=== PATIENT | male | born 1960 | race African-American/Black ===

== ENCOUNTER 2017-12-28 15:00 | Inpatient (IN) | payer OTHER ==
[2017-12-28 16:43] VITALS: BMI 29.9
--- NOTE | 2017-12-28 17:27 | HP ---
CIWA Score - CIWA Score Nausea/Vomitin-Mild Nausea/No Vomiting Muscle Tremors: 1-None Visible, but Romance Anxiety: 3 Agitation: 3 Paroxysmal Sweats: 1-Minimal Palms Moist Orientation: 0-Oriented Tacttile Disturbances: 0-None Auditory Disturbances: 3-Moderate Harsh/Frighten Visual Disturbances: 0-None Headache: 0-None Present CIWA-Ar Total Score: 12 Admission ROS BHS - HPI Chief Complaint: ETOH WITHDRAWAL SYMPTOMS AND MARIJUANA DEPENDENCE Allergies/Adverse Reactions: Allergies Allergy/AdvReac Type Severity Reaction Status Date / Time No Known Allergies Allergy Verified 12/28/17 17:06 History of Present Illness: PATIENT PRESENTS WITH ETOH WITHDRAWAL SYMPTOMS. PATIENT STARTED DRINKING AT AGE 14 AND DRINKS 120 OUNCES OF BEER DAILY. LAST DRINK WAS LAST NIGHT. PATIENT ALSO SMOKES MARIJUANA SINCE AGE 13 AND SMOKES UP TO ONE JOINT DAILY. LAST TIME HE SMOKED WAS 3 WEEKS AGO. PMH INCLUDES SCHIZOPHRENIA AND HTN. DENIES SI/HI AND SUICIDE ATTEMPTS. DENIES HX OF SEIZURES WELL. Exam Limitations: No Limitations - Ebola screening Have you traveled outside of the country in the last 21 days: No (N) Have you had contact with anyone from an Ebola affected area: No Have you been sick,other than usual withdrawal symptoms: No Do you have a fever: No - Review of Systems Constitutional: Night Sweats, Changes in sleep EENT: reports: No Symptoms Reported Respiratory: reports: No Symptoms reported Cardiac: reports: No Symptoms Reported GI: reports: Nausea, Poor Fluid Intake, Abdominal cramping : reports: No Symptoms Reported Musculoskeletal: reports: No Symptoms Reported Integumentary: reports: Sweating Neuro: reports: Headache, Tremors Endocrine: reports: No Symptoms Reported Hematology: reports: No Symptoms Reported Psychiatric: reports: Orientated x3, Anxious, Depressed Patient History - Patient Medical History Hx Anemia: No Hx Asthma: No Hx Chronic Obstructive Pulmonary Disease (COPD): No Hx Cancer: No Hx Cardiac Disorders: No Hx Congestive Heart Failure: No Hx Hypertension: Yes Hx Hypercholesterolemia: No Hx Pacemaker: No HX Cerebrovascular Accident: No Hx Seizures: No Hx Dementia: No Hx Diabetes: No Hx Gastrointestinal Disorders: No Hx Liver Disease: No Hx Genitourinary Disorders: No Hx Sexually Transmitted Disorders: No Hx Renal Disease (ESRD): No Hx Thyroid Disease: No Hx Human Immunodeficiency Virus (HIV): No Hx Hepatitis C: No Hx Depression: No Hx Suicide Attempt: No Hx Bipolar Disorder: No Hx Schizophrenia: Yes - Patient Surgical History Past Surgical History: No - PPD History Previous Implant?: No PPD to be Administered?: Yes - Smoking Cessation Smoking history: Former smoker Have you smoked in the past 12 months: No Initiated information on smoking cessation: No - Substance & Tx. History Hx Alcohol Use: Yes Hx Substance Use: Yes Substance Use Type: Alcohol, Marijuana Hx Substance Use Treatment: No - Substances Abused Alcohol Route: Oral Frequency: Daily Amount used: 2-3 40OZ Age of first use: 13 Date of Last Use: 12/28/17 Marijuana/Hashish Route: Smoking Frequency: 1-3 times last 30 days Amount used: 1 JOINT Age of first use: 13 Date of Last Use: 12/07/17 Family Disease History - Family Disease History Family Disease History: Heart Disease: Father, Mother Admission Physical Exam [facility] - Vital Signs Vital Signs: Vital Signs - 24 hr 12/28/17 16:42 Temperature 98.9 F Pulse Rate 80 Respiratory 18 Rate Blood Pressure 158/86 - Physical General Appearance: Yes: Disheveled, Tremorous, Sweating, Anxious HEENTM: Yes: EOMI, Hearing grossly Normal, Normocephalic, Normal Voice, DYLAN, Pharynx Normal Respiratory: Yes: Chest Non-Tender, Lungs Clear, Normal Breath Sounds, No Respiratory Distress, No Accessory Muscle Use Neck: Yes: No masses,lesions,Nodules, Supple Breast: Yes: Breast Exam Deferred Cardiology: Yes: Regular Rhythm, Regular Rate, S1, S2 Abdominal: Yes: Normal Bowel Sounds, Non Tender, Soft Genitourinary: Yes: Within Normal Limits Back: Yes: Normal Inspection Musculoskeletal: Yes: full range of Motion, Gait Steady Extremities: Yes: Normal Inspection, Normal Range of Motion, Non-Tender, Tremors Neurological: Yes: tester semiconductor packages II-XII NML intact, Fully Oriented, Alert, Motor Strength 5/5, Normal Response, Depressed Affect Integumentary: Yes: Normal Color, Warm, Moist Lymphatic: Yes: Within Normal Limits Cleared for Admission [facility] - Detox or Rehab [facility] Level of Care: Medically Managed Detox Regimen/Protocol: Librium [facility] Breath Alcohol Content Breath Alcohol Content: 0 Urine Drug Screen - Results Drug Screen Negative: No Urine Drug Screen Results: THC-Marijuana
[2017-12-28] MEDS ORDERED: MAGNESIUM HYDROX 2400MG/30ML ORAL SUSPENSION 30 ML CUP PO PRN (17:38)
[2017-12-28] MEDS ORDERED: P-EPHED 60MG/TRIPROLIDI 2.5MG TABLET PO PRN (17:38)
[2017-12-28] MEDS ORDERED: ACETAMINOPHEN 325 MG TABLET (FP) PO PRN (17:38)
[2017-12-28] MEDS ORDERED: IBUPROFEN 400 MG TABLET (FP) PO PRN (17:38)
[2017-12-28] MEDS ORDERED: chlordiazePOXIDE HCL 25 MG CAPSULE PO PRN (17:38)
[2017-12-28] MEDS ORDERED: MENTHOL/PHENOL 1 EACH UD MM PRN (17:38)
[2017-12-28] MEDS ORDERED: hydrOXYzine PAMOATE 50 MG CAPSULE (FP) PO PRN (17:38)
[2017-12-28] MEDS ORDERED: LOPERAMIDE HCL 2 MG CAPSULE PO PRN (17:38)
[2017-12-28] MEDS ORDERED: MAG HYDROX/AL HYDROX/SIMETH 30 ML UNIT-DOSE CUP PO PRN (17:38)
[2017-12-28] MEDS ORDERED: MAGNESIUM CITRATE 300 ML BOTTLE PO PRN (17:38)
[2017-12-28] MEDS ORDERED: guaiFENesin/D-METHORPHAN HB 10 ML UNIT-DOSE CUPS PO PRN (17:38)
[2017-12-28] MEDS ORDERED: MELATONIN 5 MG TABLETS PO PRN (22:00)
[2017-12-28] MEDS: chlordiazePOXIDE HCL 25 MG CAPSULE PO SCH (22:22)
[2017-12-28] MEDS: THIAMINE HCL 100 MG TABLET (FP) PO SCH (22:22)
[2017-12-29 01:51] LABS: URINE APPEARANCE CLEAR; URINE BILIRUBIN NEGATIVE (<2.0 mg/dL); URINE COLOR YELLOW; URINE GLUCOSE (UA) NEGATIVE (NEGATIVE); URINE KETONE NEGATIVE (NEGATIVE); URINE LEUK ESTERASE NEGATIVE (NEGATIVE); URINE NITRITE NEGATIVE (NEGATIVE); URINE PROTEIN NEGATIVE (NEGATIVE); URINE UROBILINOGEN 4.0 E.U/dl mg/dL (0.2-1.0)
[2017-12-29] MEDS: chlordiazePOXIDE HCL 25 MG CAPSULE PO SCH ×4 (05:12→22:16)
--- NOTE | 2017-12-29 09:16 | CONSULT ---
[facility] Psychiatric Consult - Data Date of interview: 12/29/17 Admission source: [facility] Identifying data: This is 57 yuears old male, single, homeless, unemployed, on SSD, with history of Schizophrenia, with long history of Alcohol, Cannabis dependsence, reporting Alcohol withdrawal symptoms, seeking fro detox,. Denies suicidal, homicidal history Substance Abuse History: - Smoking Cessation. Smoking history: Former smoker. Have you smoked in the past 12 months: No. Initiated information on smoking cessation: No. - Substance & Tx. History. Hx Alcohol Use: Yes. Hx Substance Use: Yes. Substance Use Type: Alcohol, Marijuana. Hx Substance Use Treatment: No. - Substances Abused. Alcohol. Route: Oral. Frequency: Daily. Amount used: 2-3 40OZ. Age of first use: 13. Date of Last Use: 12/28/17. Marijuana/Hashish. Route: Smoking. Frequency: 1-3 times last 30 days. Amount used: 1 JOINT. Age of first use: 13. Date of Last Use: 12/07/17 Medical History: Denies significant medicla problems Psychiatric History: Patient reports history of Schizophrenia, reports currently stable on Prolixin injections 1/2weeks, with next one on . Reports unclear pscychiastric hospitalization history. Denies suicidal, homicidal history Physical/Sexual Abuse/Trauma History: Denies Additional Comment: Prolixin injections 1/2weeks, with next one on . Mental Status Exam - Mental Status Exam Alert and Oriented to: Person Cognitive Function: Fair Patient Appearance: Unkempt Mood: Apprehensive Affect: Mood Congruent Patient Behavior: Cooperative Speech Pattern: Appropriate Voice Loudness: Mildly Soft/Quiet Thought Process: Circumstantial, Goal Oriented Thought Disorder: Being Controlled Hallucinations: Denies Suicidal Ideation: Denies Homicidal Ideation: Denies Insight/Judgement: Fair Sleep: Difficulty falling asleep Appetite: Weight gain Muscle strength/Tone: Mild Hypotonicity Gait/Station: Shuffling Additional Comments: Prolixin Decanoate 50mg once/2weeks, next one on 2107 Psychiatric Findings - Problem List ([place] 1, 2,3) (1) Drug-induced mood disorder Current Visit: Yes Status: Acute (2) Alcohol dependence with uncomplicated withdrawal Current Visit: Yes Status: Acute (3) Schizophrenia Current Visit: Yes Status: Acute Qualifiers: Schizophrenia type: unspecified Qualified Code(s): F20.9 - Schizophrenia, unspecified (4) Marijuana dependence Current Visit: Yes Status: Chronic - Initial Treatment Plan Initial Treatment Plan: Prolixin Decanoate 50mg once/2weeks, next one on 01.03
[2017-12-29 10:01] LABS: HEMATOCRIT 39.6 % (35.4-49); HEMOGLOBIN 13.2 GM/dL (11.7-16.9); MCH 28.4 pg (25.7-33.7); MCHC 33.4 g/dl (32.0-35.9); MEAN CELL VOLUME 85.1 fl (80-96); MEAN PLT VOLUME 8.7 fl (7.5-11.1); PLATELET COUNT 239 K/MM3 (134-434); RBC 4.66 M/mm3 (4.00-5.60); RDW 15.2 % (11.9-15.9); WHITE BLOOD COUNT 6.7 K/mm3 (4.0-10.0)
[2017-12-29 10:17] LABS: CHLORIDE 106 mmol/L (98-107); POTASSIUM 4.6 mmol/L (3.5-5.1); SODIUM 140 mmol/L (136-145)
[2017-12-29 10:33] LABS: ALK PHOS 49 U/L (45-117); ANION GAP 6 (8-16); BILIRUBIN,TOTAL 0.6 mg/dL (0.2-1.0); BLOOD UREA NITROGEN 15 mg/dL (7-18); CALCIUM 9.1 mg/dL (8.5-10.1); CO2 28 mmol/L (21-32); CREATININE 0.9 mg/dL (0.7-1.3); GLUCOSE,RANDOM 103 mg/dL (74-106); SGOT/AST 20 U/L (15-37); SGPT/ALT 38 U/L (12-78); TOT PROT 7.2 g/dl (6.4-8.2)
[2017-12-29] MEDS: LOSARTAN POTASSIUM 50 MG TABLET (FP) PO SCH (10:35)
[2017-12-29] MEDS: PRENATAL VITAMINS W/ FOLIC ACID TABLET (FP) PO SCH (10:35)
--- NOTE | 2017-12-29 11:17 | PN ---
S CIWA - CIWA Score Nausea/Vomitin Muscle Tremors: 3 Anxiety: 2 Agitation: 2 Paroxysmal Sweats: 1-Minimal Palms Moist Orientation: 0-Oriented Tacttile Disturbances: 1-Very Mild Itch/Numbness Auditory Disturbances: 1-Very Mild Visual Disturbances: 0-None Headache: 2-Mild CIWA-Ar Total Score: 15 S Progress Note (SOAP) Subjective: alert,irritable,anxious,interrupted sleep,tremor Objective: 12/29/17 11:13 Vital Signs Temperature 98.2 F 12/29/17 09:55 Pulse Rate 90 12/29/17 09:55 Respiratory Rate 18 12/29/17 09:55 Blood Pressure 149/91 12/29/17 09:55 O2 Sat by Pulse Oximetry (%) ekg nsr qt/[id number]/428 Laboratory Last Values WBC 6.7 K/mm3 (4.0-10.0) 12/29/17 08:00 RBC 4.66 M/mm3 (4.00-5.60) 12/29/17 08:00 Hgb 13.2 GM/dL (11.7-16.9) 12/29/17 08:00 Hct 39.6 % (35.4-49) 12/29/17 08:00 MCV 85.1 fl (80-96) 12/29/17 08:00 MCH 28.4 pg (25.7-33.7) 12/29/17 08:00 MCHC 33.4 g/dl (32.0-35.9) 12/29/17 08:00 RDW 15.2 % (11.9-15.9) 12/29/17 08:00 Plt Count 239 K/MM3 (134-434) 12/29/17 08:00 MPV 8.7 fl (7.5-11.1) 12/29/17 08:00 Sodium 140 mmol/L (136-145) 12/29/17 08:00 Potassium 4.6 mmol/L (3.5-5.1) 12/29/17 08:00 Chloride 106 mmol/L (98-107) 12/29/17 08:00 Carbon Dioxide 28 mmol/L (21-32) 12/29/17 08:00 Anion Gap 6 (8-16) L 12/29/17 08:00 BUN 15 mg/dL (7-18) 12/29/17 08:00 Creatinine 0.9 mg/dL (0.7-1.3) 12/29/17 08:00 Creat Clearance w eGFR > 60 (>60) 12/29/17 08:00 Random Glucose 103 mg/dL (74-106) 12/29/17 08:00 Calcium 9.1 mg/dL (8.5-10.1) 12/29/17 08:00 Total Bilirubin 0.6 mg/dL (0.2-1.0) 12/29/17 08:00 AST 20 U/L (15-37) 12/29/17 08:00 ALT 38 U/L (12-78) 12/29/17 08:00 Alkaline Phosphatase 49 U/L (45-117) 12/29/17 08:00 Total Protein 7.2 g/dl (6.4-8.2) 12/29/17 08:00 Albumin 4.0 g/dl (3.4-5.0) 12/29/17 08:00 Urine Color Yellow 12/28/17 01:30 Urine Appearance Clear 12/28/17 01:30 Urine pH 5.0 (5.0-8.0) 12/28/17 01:30 Ur Specific [place] 1.019 (1.001-1.035) 12/28/17 01:30 Urine Protein Negative (NEGATIVE) 12/28/17 01:30 Urine Glucose (UA) Negative (NEGATIVE) 12/28/17 01:30 Urine Ketones Negative (NEGATIVE) 12/28/17 01:30 Urine Blood Negative (NEGATIVE) 12/28/17 01:30 Urine Nitrite Negative (NEGATIVE) 12/28/17 01:30 Urine Bilirubin Negative (<2.0 mg/dL) 12/28/17 01:30 Urine Urobilinogen 4.0 e.u/dl mg/dL (0.2-1.0) 12/28/17 01:30 Ur Leukocyte Esterase Negative (NEGATIVE) 12/28/17 01:30 RPR Titer Nonreactive (NONREACTIVE) 12/29/17 08:00 Assessment: 12/29/17 11:16 withdrawal symptom Plan: continue detox
--- NOTE | 2017-12-29 14:37 | EKG ---
Test Reason : Blood Pressure : / mmHG Vent. Rate : 067 BPM Atrial Rate : 067 BPM P-R Int : 176 ms QRS Dur : 088 ms QT Int : 404 ms P-R-T Axes : 065 037 030 degrees QTc Int : 426 ms NORMAL SINUS RHYTHM NONSPECIFIC T WAVE ABNORMALITY ABNORMAL ECG NO PREVIOUS ECGS AVAILABLE Confirmed by ANJANA VALENTIN, SYDNEY ([id number]) on 12/29/2017 2:36:50 PM Referred By: Confirmed By:SYDNEY YEUNG MD
[2017-12-29] MEDS: THIAMINE HCL 100 MG TABLET (FP) PO SCH (22:16)
[2017-12-30] MEDS: chlordiazePOXIDE HCL 25 MG CAPSULE PO SCH ×3 (06:35→17:40)
--- NOTE | 2017-12-30 09:27 | PN ---
S CIWA - CIWA Score Nausea/Vomitin Muscle Tremors: 3 Anxiety: 2 Agitation: 2 Paroxysmal Sweats: 1-Minimal Palms Moist Orientation: 0-Oriented Tacttile Disturbances: 1-Very Mild Itch/Numbness Auditory Disturbances: 1-Very Mild Visual Disturbances: 0-None Headache: 2-Mild CIWA-Ar Total Score: 15 BHS Progress Note (SOAP) Subjective: alert,irritable,anxious,interrupted sleep,pain in the body Objective: 12/30/17 09:27 Vital Signs Temperature 97.7 F 12/30/17 09:21 Pulse Rate 94 H 12/30/17 09:21 Respiratory Rate 18 12/30/17 09:21 Blood Pressure 124/85 12/30/17 09:21 O2 Sat by Pulse Oximetry (%) Assessment: 12/30/17 09:27 withdrawal symptom Plan: continue detox
[2017-12-30] MEDS: PRENATAL VITAMINS W/ FOLIC ACID TABLET (FP) PO SCH (10:17)
[2017-12-30] MEDS: LOSARTAN POTASSIUM 50 MG TABLET (FP) PO SCH (10:17)
[2017-12-30] MEDS: THIAMINE HCL 100 MG TABLET (FP) PO SCH (22:13)
[2017-12-30] MEDS: chlordiazePOXIDE 5 MG CAPSULE PO SCH (22:14)
[2017-12-31] MEDS: chlordiazePOXIDE 5 MG CAPSULE PO SCH ×3 (05:39→18:27)
[2017-12-31] MEDS: PRENATAL VITAMINS W/ FOLIC ACID TABLET (FP) PO SCH (11:05)
[2017-12-31] MEDS: LOSARTAN POTASSIUM 50 MG TABLET (FP) PO SCH (11:06)
--- NOTE | 2017-12-31 12:20 | PN ---
BHS Progress Note (SOAP) Subjective: Interrupted sleep and irritability Objective: 12/31/17 12:19 Vital Signs 12/31/17 12/31/17 06:00 10:20 Temperature 97.3 F L 98.4 F Pulse Rate 75 93 H Respiratory 18 18 Rate Blood Pressure 135/73 146/95 Laboratory Last Values WBC 6.7 K/mm3 (4.0-10.0) 12/29/17 08:00 RBC 4.66 M/mm3 (4.00-5.60) 12/29/17 08:00 Hgb 13.2 GM/dL (11.7-16.9) 12/29/17 08:00 Hct 39.6 % (35.4-49) 12/29/17 08:00 MCV 85.1 fl (80-96) 12/29/17 08:00 MCH 28.4 pg (25.7-33.7) 12/29/17 08:00 MCHC 33.4 g/dl (32.0-35.9) 12/29/17 08:00 RDW 15.2 % (11.9-15.9) 12/29/17 08:00 Plt Count 239 K/MM3 (134-434) 12/29/17 08:00 MPV 8.7 fl (7.5-11.1) 12/29/17 08:00 Sodium 140 mmol/L (136-145) 12/29/17 08:00 Potassium 4.6 mmol/L (3.5-5.1) 12/29/17 08:00 Chloride 106 mmol/L (98-107) 12/29/17 08:00 Carbon Dioxide 28 mmol/L (21-32) 12/29/17 08:00 Anion Gap 6 (8-16) L 12/29/17 08:00 BUN 15 mg/dL (7-18) 12/29/17 08:00 Creatinine 0.9 mg/dL (0.7-1.3) 12/29/17 08:00 Creat Clearance w eGFR > 60 (>60) 12/29/17 08:00 Random Glucose 103 mg/dL (74-106) 12/29/17 08:00 Calcium 9.1 mg/dL (8.5-10.1) 12/29/17 08:00 Total Bilirubin 0.6 mg/dL (0.2-1.0) 12/29/17 08:00 AST 20 U/L (15-37) 12/29/17 08:00 ALT 38 U/L (12-78) 12/29/17 08:00 Alkaline Phosphatase 49 U/L (45-117) 12/29/17 08:00 Total Protein 7.2 g/dl (6.4-8.2) 12/29/17 08:00 Albumin 4.0 g/dl (3.4-5.0) 12/29/17 08:00 Urine Color Yellow 12/28/17 01:30 Urine Appearance Clear 12/28/17 01:30 Urine pH 5.0 (5.0-8.0) 12/28/17 01:30 Ur Specific [place] 1.019 (1.001-1.035) 12/28/17 01:30 Urine Protein Negative (NEGATIVE) 12/28/17 01:30 Urine Glucose (UA) Negative (NEGATIVE) 12/28/17 01:30 Urine Ketones Negative (NEGATIVE) 12/28/17 01:30 Urine Blood Negative (NEGATIVE) 12/28/17 01:30 Urine Nitrite Negative (NEGATIVE) 12/28/17 01:30 Urine Bilirubin Negative (<2.0 mg/dL) 12/28/17 01:30 Urine Urobilinogen 4.0 e.u/dl mg/dL (0.2-1.0) 12/28/17 01:30 Ur Leukocyte Esterase Negative (NEGATIVE) 12/28/17 01:30 RPR Titer Nonreactive (NONREACTIVE) 12/29/17 08:00 Labs noted Assessment: 12/31/17 12:20 Withdrawal sx Plan: Continue detox
[2017-12-31] MEDS: THIAMINE HCL 100 MG TABLET (FP) PO SCH (23:15)
[2018-01-01] MEDS: chlordiazePOXIDE HCL 10 MG CAPSULE PO SCH ×2 (00:26→05:37)
[2018-01-01 06:34] VITALS: BP 138/91; PULSE 90; TEMP 97.5
--- NOTE | 2018-01-01 08:37 | DS ---
[facility] Detox Discharge Summary Admission Date: 12/28/17 Discharge Date: 01/01/18 - History Present History: Alcohol Dependence Additional Comments: 57 years old male admitted on 12/28/17 for alcohol withdrawal sx completed alcohol detox regiment tolerated well denies alcohol withdrawal sx alert oriented x 3 no acute distress aftercare [facility] - Physical Exam Results Vital Signs: Vital Signs Temperature 97.5 F L 01/01/18 06:00 Pulse Rate 90 01/01/18 06:00 Respiratory Rate 20 01/01/18 06:00 Blood Pressure 138/91 01/01/18 06:00 O2 Sat by Pulse Oximetry (%) Pertinent Admission Physical Exam Findings: alcohol withdrawal sx Vital Signs Temperature 97.5 F L 01/01/18 06:00 Pulse Rate 90 01/01/18 06:00 Respiratory Rate 20 01/01/18 06:00 Blood Pressure 138/91 01/01/18 06:00 O2 Sat by Pulse Oximetry (%) Laboratory Last Values WBC 6.7 K/mm3 (4.0-10.0) 12/29/17 08:00 RBC 4.66 M/mm3 (4.00-5.60) 12/29/17 08:00 Hgb 13.2 GM/dL (11.7-16.9) 12/29/17 08:00 Hct 39.6 % (35.4-49) 12/29/17 08:00 MCV 85.1 fl (80-96) 12/29/17 08:00 MCH 28.4 pg (25.7-33.7) 12/29/17 08:00 MCHC 33.4 g/dl (32.0-35.9) 12/29/17 08:00 RDW 15.2 % (11.9-15.9) 12/29/17 08:00 Plt Count 239 K/MM3 (134-434) 12/29/17 08:00 MPV 8.7 fl (7.5-11.1) 12/29/17 08:00 Sodium 140 mmol/L (136-145) 12/29/17 08:00 Potassium 4.6 mmol/L (3.5-5.1) 12/29/17 08:00 Chloride 106 mmol/L (98-107) 12/29/17 08:00 Carbon Dioxide 28 mmol/L (21-32) 12/29/17 08:00 Anion Gap 6 (8-16) L 12/29/17 08:00 BUN 15 mg/dL (7-18) 12/29/17 08:00 Creatinine 0.9 mg/dL (0.7-1.3) 12/29/17 08:00 Creat Clearance w eGFR > 60 (>60) 12/29/17 08:00 Random Glucose 103 mg/dL (74-106) 12/29/17 08:00 Calcium 9.1 mg/dL (8.5-10.1) 12/29/17 08:00 Total Bilirubin 0.6 mg/dL (0.2-1.0) 12/29/17 08:00 AST 20 U/L (15-37) 12/29/17 08:00 ALT 38 U/L (12-78) 12/29/17 08:00 Alkaline Phosphatase 49 U/L (45-117) 12/29/17 08:00 Total Protein 7.2 g/dl (6.4-8.2) 12/29/17 08:00 Albumin 4.0 g/dl (3.4-5.0) 12/29/17 08:00 Urine Color Yellow 12/28/17 01:30 Urine Appearance Clear 12/28/17 01:30 Urine pH 5.0 (5.0-8.0) 12/28/17 01:30 Ur Specific [place] 1.019 (1.001-1.035) 12/28/17 01:30 Urine Protein Negative (NEGATIVE) 12/28/17 01:30 Urine Glucose (UA) Negative (NEGATIVE) 12/28/17 01:30 Urine Ketones Negative (NEGATIVE) 12/28/17 01:30 Urine Blood Negative (NEGATIVE) 12/28/17 01:30 Urine Nitrite Negative (NEGATIVE) 12/28/17 01:30 Urine Bilirubin Negative (<2.0 mg/dL) 12/28/17 01:30 Urine Urobilinogen 4.0 e.u/dl mg/dL (0.2-1.0) 12/28/17 01:30 Ur Leukocyte Esterase Negative (NEGATIVE) 12/28/17 01:30 RPR Titer Nonreactive (NONREACTIVE) 12/29/17 08:00 lab noted - Treatment Hospital Course: Detox Protocol Followed, Detoxed Safely, Responded well, Discharged Condition Good, Rehab Referral Accepted Patient has Accepted a Re[facility] Referral to: [facility] - Medication Discharge Medications: Ambulatory Orders Fluphenazine Decanoate [Prolixin Decanoate (Long-Acting Injection) -] 50 mg IJ WEEKLY 12/28/17 Losartan Potassium 50 mg PO DAILY #14 tablet 01/01/18 - Diagnosis (1) Alcohol dependence with uncomplicated withdrawal Current Visit: Yes Status: Acute (2) HTN (hypertension) Current Visit: Yes Status: Chronic Qualifiers: Hypertension type: essential hypertension Qualified Code(s): I10 - Essential (primary) hypertension (3) Schizophrenia Current Visit: Yes Status: Suspected Qualifiers: Schizophrenia type: unspecified Qualified Code(s): F20.9 - Schizophrenia, unspecified - AMA Did Patient Leave Against Medical Advice: No
[2018-01-03] MEDS ORDERED: fluPHENAZine DECANOATE 125 MG/5ML VIAL IM ONE (09:18)
== END 2018-01-01 09:15 | disposition home or self-care (01) | DRG 897 ==
LOC: YASAS 15:00 → Y6N 17:57
PROVIDERS: ADMIT Surgery; ATTEND Surgery
PROC: HZ2ZZZZ Detoxification Services for Substance Abuse Treatment (ICD-10-PCS; principal; 2017-12-28)
DX: F10.230 Alcohol dependence with withdrawal, uncomplicated (principal); F12.20 Cannabis dependence, uncomplicated; F20.9 Schizophrenia, unspecified; F19.24 Other psychoactive substance dependence with psychoactive substance-induced mood disorder; I10 Essential (primary) hypertension
CPT/HCPCS: 36415; 80053; 81003; 85027; 86593; 93005; 93010